=== PATIENT | female | born 1970 | race Caucasian/White ===

== ENCOUNTER → 2022-05-04 | Outpatient (CLI) | payer BC | LOC: CT 05-01 13:00 | DX: R10.13 Epigastric pain (principal); R10.31 Right lower quadrant pain | CPT/HCPCS: Q9967 ==

== ENCOUNTER → 2022-06-08 | Outpatient (CLI) | payer BC | LOC: NM 05-31 08:30 | DX: R93.89 Abnormal findings on diagnostic imaging of other specified body structures (principal) | CPT/HCPCS: 78300; A9503 ==